=== PATIENT | female | born 1975 | race African-American/Black ===

== ENCOUNTER 2017-05-28 19:43 | Emergency (ER) | payer OTHER, MEDICAID ==
[~2017-05-28] VITALS: Ht 172.7 cm; Wt 68.0 kg
[2017-05-28 22:50] LABS: BASOPHILS % 1.4 % (0.0-2.0); EOSINOPHILS % 0.5 % (0.0-5.0); HEMATOCRIT. 28.1 % (36.0-48.0); HEMOGLOBIN. 9.2 g/dL (12.0-16.0); LYMPHOCYTES % 11.3 % (20.0-50.0); MEAN CORPUSCULAR HEMOGLOBIN 30.5 pg (28.0-32.0); MEAN CORPUSCULAR VOLUME 93.3 fL (81.0-99.0); MONOCYTES % 9.2 % (2.0-8.0); NEUTROPHILS % 77.6 % (40.0-76.0); PLATELET 290 x1000/uL (130-400); RED BLOOD CELL COUNT 3.01 mill/uL (4.2-5.4); RED CELL DISTRIBUTION WIDTH 16.1 % (11.6-14.6)
[2017-05-28 23:00] LABS: CHLORIDE 94 mEq/L (98-107)
[2017-05-28 23:08] LABS: CARBON DIOXIDE 26 mEq/L (21-32)
[2017-05-28 23:10] LABS: TROPONIN I 0.06 ng/mL (0.00-0.04)
[2017-05-29 01:38] VITALS: BP 132/74
== END 2017-05-29 02:05 | disposition short-term general hospital (02) ==
LOC: ER 19:43
DX: E11.65 Type 2 diabetes mellitus with hyperglycemia (principal); N17.0 Acute kidney failure with tubular necrosis; E11.21 Type 2 diabetes mellitus with diabetic nephropathy; I12.9 Hypertensive chronic kidney disease with stage 1 through stage 4 chronic kidney disease, or unspecified chronic kidney disease; R74.8 Abnormal levels of other serum enzymes; R70.0 Elevated erythrocyte sedimentation rate; R42 Dizziness and giddiness; R06.02 Shortness of breath; E87.8 Other disorders of electrolyte and fluid balance, not elsewhere classified; F17.200 Nicotine dependence, unspecified, uncomplicated; I50.9 Heart failure, unspecified; Z99.2 Dependence on renal dialysis; Z91.14 Patient's other noncompliance with medication regimen; Z91.15 Patient's noncompliance with renal dialysis; Z95.811 Presence of heart assist device
CPT/HCPCS: 36415; 71010; 80053; 82962; 83036; 83880; 84484; 85025; 85651; 93005; 99285